=== PATIENT | female | born 1995 | race Caucasian/White ===

== ENCOUNTER 2017-01-01 11:38 | Day surgery (SDC) | payer OTHER ==
[~2017-01-01] VITALS: Ht 172.7 cm; Wt 90.0 kg
[~2017-01-01 11:38] MED LIST: 0.9% Sodium Chloride 1,000 ML IV SCH; Sodium Chloride LOK Flush 10 mL Syringe IV PRN; fentaNYL-PF 50 mCg/mL 2 mL Inj IVPUSH PRN
[2017-01-01] MEDS ORDERED: OMEP20CA11 PO (12:58)
[2017-01-01 13:08] VITALS: BP 115/73; PULSE 65; RESP 18; O2SAT 99
[2017-01-01 13:49] VITALS: BP 114/68; PULSE 63; RESP 16; O2SAT 94
[2017-01-01 14:01] VITALS: BP 108/63; PULSE 64; RESP 16; O2SAT 96
[2017-01-01 14:10] VITALS: BP 108/67; PULSE 65; RESP 16; O2SAT 98
--- NOTE | 2017-01-02 03:19 | ENDO ---
[address] [address] ENDOSCOPY PROCEDURE PATIENT: GRAHAM CLEMENTS : 1995 MR#: [id number] ADMIT: 01/01/2017 JOB ID: [id number] DATE OF SERVICE: 01/01/2017 OPERATION: Esophagogastroduodenoscopy with biopsy with esophageal dilatation. PREOPERATIVE DIAGNOSIS(ES): Dysphagia. POSTOPERATIVE DIAGNOSIS(ES): 1. Mild amount of in the stomach, status post biopsy mid distal esophagus and antrum and body of the stomach. 2. Successful TTS balloon dilatation up to 20 mm distal esophagus with good mucosal tear. ANESTHESIA: 1. Fentanyl 125 mcg. 2. Versed 7 mg IV administered. COMPLICATION: Minimal. DESCRIPTION OF PROCEDURE: After risks and benefits explained to the patient, informed consent was obtained. After anesthesia administered, upper endoscope was inserted in the mouth intubating to the esophagus, stomach, second portion of duodenum and the mucosa carefully examined. After procedure was done, the scope was withdrawn and procedure terminated. FINDINGS: Upon inspection esophagus, the esophagus was normal without masses, ulcers, lesions. Z-line located 35 cm from the incisors. Upon entering the stomach, there is mild amount of fluid that was suctioned out that was seen in the stomach. There were no masses, ulcers or lesions seen. On retroflexion, normal duodenal bulb, first and second portion . Biopsies taken at the antrum, body of stomach and mid and distal esophagus. Afterwards a TTS balloon dilatation was performed in serial fashion up to 20 mm in the distal esophagus with good mucosal tear. IMPRESSION: 1. Mild amount of fluid in the stomach which was suctioned out. 2. Successful TTS balloon dilatation in distal esophagus in a serial fashion with good mucosa tear up to 20 mm. RECOMMENDATIONS: Await pathology results. Follow up in GI clinic as needed. Consider outpatient gastric emptying study is the patient ever has early satiety or nausea or a feeling of fulness.
--- NOTE | 2017-01-05 11:18 | PATH ---
SURGICAL PATHOLOGY Attending Physician:Jose David White MD CASE STATUS: Signed Out PATIENT NAME: GRAHAM CLEMENTS PID: [id number] : 1995 DATE COLLECTED:01/01/2017 00:00 SPECIMEN: 1: Stomach, Antrum, Biopsy 2: Gastric, Biopsy 3: Esophagus, Biopsy 4: Esophagus, Biopsy CLINICAL HISTORY: 1). ANTRUM BIOPSY 2). GASTRIC BODY 3). DISTAL BIOPSY 4). MID ESOPHAGUS FINAL DIAGNOSIS: 1.GASTRIC ANTRUM BIOPSY: ANTRAL MUCOSA WITH NO DIAGNOSTIC ALTERATIONS. Negative for Helicobacter organisms. Negative for intestinal metaplasia. Negative for dysplasia and malignancy. 2.GASTRIC BODY BIOPSY: BODY-TYPE MUCOSA WITH NO DIAGNOSTIC ALTERATIONS. Negative for Helicobacter organisms. Negative for intestinal metaplasia. Negative for dysplasia and malignancy. 3.DISTAL BIOPSY: SQUAMOCOLUMNAR MUCOSA WITH NO DIAGNOSTIC ALTERATIONS. Negative for intestinal/Simon' s metaplasia. Negative for dysplasia and malignancy. 4.MID ESOPHAGUS BIOPSY: SQUAMOUS MUCOSA WITH NO DIAGNOSTIC ALTERATIONS. Negative for intestinal/Simon' s metaplasia. Negative for dysplasia and malignancy. Eosinophils are not increased. ICD10 code R10.9 GROSS DESCRIPTION: Received are four formalin-filled containers, each labeled with the patient' s name. 1. Received in formalin, labeled with the patient' s name and "1. Antrum BX", are two fragments of parra, soft tissue ranging in size from 0.2 x 0.1 x 0.1 cm to 0.4 x 0.2 x 0.1 cm. All fragments are totally submitted in cassette 1A. 2. Received in formalin, labeled with the patient' s name and "2. Body BX", are two fragments of parra, soft tissue ranging in size from 0.1 x 0.1 x 0.1 cm to 0.3 x 0.1 x 0.1 cm. All fragments are totally submitted in cassette 2A. 3. Received in formalin, labeled with the patient' s name and "3. Distal esoph", are two fragments of parra, soft tissue ranging in size from 0.1 x 0.1 x 0.1 cm to 0.2 x 0.1 x 0.1 cm. All fragments are totally submitted in cassette 3A. 4. Received in formalin, labeled with the patient' s name and "4. Mid esoph", are two fragments of parra, soft tissue ranging in size from 0.1 x 0.1 x 0.1 cm to 0.2 x 0.2 x 0.2 cm. All fragments are totally submitted in cassette 4A. ([id number]) MICRO DESCRIPTION: See diagnosis. ICD-9 CODES: CPT CODES: 1: 11551 2: 38778 3: 62679 4: 70527 Electronically Signed Out Matilda Fonseca MD [facility]ology [facility] [address], [place] [address] Technical component performed at [facility], [address], [place], [address]
== END 2017-01-01 23:59 | disposition home or self-care (01) ==
LOC: END 11:38
PROVIDERS: ATTEND Internal Medicine Gastroenterology
DX: R13.10 Dysphagia, unspecified (principal); K21.9 Gastro-esophageal reflux disease without esophagitis
CPT/HCPCS: 43239; 43249; G0500; J7030

== ENCOUNTER 2017-03-19 23:54 | Emergency (ER) | payer OTHER ==
[~2017-03-19] VITALS: Ht 172.7 cm; Wt 88.6 kg
[~2017-03-19 23:54] MED LIST changes: -0.9% Sodium Chloride 1,000 ML IV SCH; +OMEP20CA11 PO; -Sodium Chloride LOK Flush 10 mL Syringe IV PRN; -fentaNYL-PF 50 mCg/mL 2 mL Inj IVPUSH PRN
[2017-03-20] VITALS: BP 123/77; PULSE 93; RESP 16; O2SAT 97
--- NOTE | 2017-03-20 00:14 | ED.REPORT ---
HPI-Extremity Problem Upper Date of Service Mar 20, 2017 ED Provider: Dr. Abdelrahman Leon M.D. The patient is a 21 year old female with a history of GERD who presents to the ED with a left thumb injury onset just prior to arrival. The patient was chopping food at work when she slipped and cut the tip of her thumb with a knife. She denies additional injury/trauma or other symptoms. Nursing Notes Stated Complaint: LT THUMB LACERATION Chief Complaint: Extremity Trauma Nursing Notes Reviewed: Yes Allergies: Coded Allergies: No Known Drug Allergies (Verified Allergy, Unknown, 01/01/17) Scheduled Omeprazole (Omeprazole) 20 Mg Capsule.dr 20 MG PO DAILY General Time Seen by MD: 00:14 Chief Complaint Finger injury left 1 Hx Obtained From: Patient Arrived By: Walk-in Onset Occurred: Just prior to arrival Symptom Duration: Since onset Caused by: Knife wound Context: Occurred at: Workplace Location: : Finger left 1 Quality: Painful Severity: Current: Moderate Severity: Maximum: Moderate Pertinent Negative: Relieved by nothing Immunizations: Tetanus up to date Recent Healthcare: No recent doctor visit Past Medical History Past Medical History GERD Past Surgical History None reported Smoking History Never Smoker Occupation [employer] Status Independent Review of Systems Review of Systems Note: + Left thumb laceration Constitutional: Denies: Fever Musculoskeletal: Reports: Extremity pain (Left Finger 1) Complete sys rev & neg: except as marked. Respiratory: Denies: Non-productive cough, Shortness of breath GI: Denies: Diarrhea, Vomiting Physical Exam Initial Vital Signs Vital Signs (First) Date Time Temp Pulse Resp B/P Pulse Ox O2 Delivery O2 Flow Rate FiO2 03/20/17 00:00 36.2 93 16 123/77 97 Room Air Initial VS: Reviewed Head / Eyes: Atraumatic, Normocephalic ENT: Conjunctiva normal, No scleral icterus Neck: Supple, Full range of motion Respiratory: No respiratory distress Skin: Warm, Dry, No cyanosis Neurologic: Alert, Oriented, Nonfocal Psychiatric: Mood/affect normal, Behavior normal, Normal thought content General/Constitutional: Awake, Alert Wrist / Hand: Full range of motion Trauma / Burn / Environmental: Positive: Laceration (2cm flap laceration to tip of left thumb involving distal nail ) Procedures Laceration Nailbed Mgmt Time: 00:27 Procedure Performed by: ED physician Consent / Setup / Site Prep: Consent from patient, Time-out performed, Hand hygiene observed, Stand sterile technique Digit Involved: Thumb left Wound Length: 2 cm Local Anesthesia: Lidocaine 1% Wound Preparation: Shurclens, Betadine, Normal saline Irrigation: Copious Foreign Body Explore / Removal: Explored for foreign body Repaired With: ___ O (5), Nylon # Sutures - Skin: 5 Miscellaneous: Nailplate suture in place Post-Procedure / Complications: Antibiotic oint applied, Dressing applied, No complications, Condition improved, Tolerated procedure well, Patient stable Re-Eval/Medical Decision Med Decision/Clinical Course 21-year-old sustained a flap laceration the tip of her left thumb cutting food at work. This runs through the nail distally. Nail bed was closed with a single stitch and then skin closed with additional sutures as detailed above. Tolerated well and will return for suture removal in a week. Re-Evaluation/Progress : Time of Eval: 00:27 Patient Status: Condition improved Re-Evaluation/Progress Note: Laceration management performed. Discussed with patient diagnosis and plan for discharge. Follow-up and return to the ER instructions given. Patient agrees with plan for care and all questions were addressed. Counseled Regarding: Diagnosis, Need for follow-up, When/why to return to ED Discharge & Departure Impression: Primary Impression: Thumb laceration Encounter type: initial encounter Laterality: left Qualified Code: S61.012A - Laceration without foreign body of left thumb without damage to nail , initial encounter Disposition: Home Discharge Condition All VS Reviewed: Yes Condition: Improved Patient Instructions: Finger Laceration (ED) Additional Instructions: Return in one week for suture removal. Bacitracin dressing three times daily to the area. Keep it clean and dry. Wear gloves to work. Return here if any signs of infection such as pus, excessive drainage, redness, or other new symptoms of concern. Referrals: Fco Diallo MD (PCP) Flaviaibmichelle Attestation Portions of this note were transcribed by Tabitha Vasques. I, Dr. Leon, personally performed the history, physical exam, and medical decision-making; I reviewed and confirmed the accuracy of the information in the transcribed note. Signed by: Davi Chavez, 03/20/2017, 01:40 copies to: Fco Diallo MD, Christopher W MD Mar 20, 2017 00:14 TABITHA VASQUES Mar 20, 2017 00:23
== END 2017-03-20 01:10 | disposition home or self-care (01) ==
LOC: SED 23:54
DX: S61.012A Laceration without foreign body of left thumb without damage to nail, initial encounter (principal); W26.0XXA Contact with knife, initial encounter; Y93.G1 Activity, food preparation and clean up; Y99.0 Civilian activity done for income or pay; Y92.59 Other trade areas as the place of occurrence of the external cause; K21.9 Gastro-esophageal reflux disease without esophagitis

== ENCOUNTER 2017-03-26 17:10 | Emergency (ER) | payer OTHER ==
[~2017-03-26] VITALS: Ht 172.7 cm; Wt 86.8 kg
[2017-03-26 17:12] VITALS: PULSE 72; RESP 16; O2SAT 97
== END 2017-03-26 17:20 | disposition home or self-care (01) ==
LOC: SED 17:10
DX: Z48.02 Encounter for removal of sutures (principal)